=== PATIENT | male | born 2000 | race Caucasian/White ===

== ENCOUNTER 2021-12-10 01:12 | Observation (INO) | payer SELFPAY ==
[~2021-12-10] VITALS: Ht 175.3 cm; Wt 123.7 kg
[2021-12-10] MEDS ORDERED: NS 1,000 ML IV ONE ×3 (01:20→06:15)
[2021-12-10] MEDS ORDERED: LORazepam 2 MG/ML VIAL IV STA ×4 (01:20→10:02)
[2021-12-10] MEDS ORDERED: LORazepam 2 MG/ML VIAL As Ordered ONE ×2 (01:21→03:17)
[2021-12-10] MEDS ORDERED: SUBO8MIS SL (01:43)
[2021-12-10 01:45] LABS: BASO # 0.1 10^3/uL (0.0-0.2); BASO % 0.3 % (0.0-1.0); EOS # 0.2 10^3/uL (0.0-0.5); EOS % 0.8 % (0.0-3.0); HEMATOCRIT 40.8 % (42.0-52.0); HEMOGLOBIN 13.7 g/dl (13.5-17.5); LYMPH % 22.3 % (24.0-44.0); MEAN CORPUSCULAR HEMOGLOBIN 30.4 pg (27.0-33.0); MEAN CORPUSCULAR HGB CONC 33.6 g/dl (32.0-36.5); MEAN CORPUSCULAR VOLUME 90.7 fl (80.0-96.0); MONO # 0.9 10^3/uL (0.0-0.8); MONO % 5.1 % (2.0-8.0); NEUTROPHILS # 12.7 10^3/uL (1.5-8.5); NEUTROPHILS % 71.1 % (36.0-66.0); PLATELET COUNT, AUTOMATED 310 10^3/uL (150-450); WHITE BLOOD COUNT 17.9 10^3/uL (4.0-10.0)
[2021-12-10 02:19] LABS: AMPHETAMINES LEVEL URINE NEGATIVE (NEGATIVE); BARBITURATES URINE NEGATIVE (NEGATIVE); BENZODIAZEPINES URINE NEGATIVE (NEGATIVE); CANNABINOIDS URINE POSITIVE (NEGATIVE); COCAINE METABOLITE URINE NEGATIVE (NEGATIVE); METHADONE URINE NEGATIVE (NEGATIVE); OPIATES URINE POSITIVE (NEGATIVE); PHENCYCLIDINE URINE NEGATIVE (NEGATIVE)
[2021-12-10 02:23] LABS: ACETAMINOPHEN LEVEL < 2.0 UG/ML (10.0-30.0); ALBUMIN 3.9 GM/DL (3.2-5.2); ALT/SGPT 62 U/L (12-78); BILIRUBIN,DIRECT 0.1 MG/DL (0.0-0.2); BILIRUBIN,TOTAL 0.1 MG/DL (0.2-1.0); BLOOD UREA NITROGEN 14 MG/DL (7-18); CALCIUM LEVEL 9.1 MG/DL (8.5-10.1); CARBON DIOXIDE LEVEL 25 MEQ/L (21-32); CHLORIDE LEVEL 104 MEQ/L (98-107); CREATININE FOR GFR 1.22 MG/DL (0.70-1.30); ETHYL ALCOHOL (ETHANOL) < 0.003 % (0.000-0.010); GLOMERULAR FILTRATION RATE > 60.0 (>60); GLUCOSE, FASTING 159 MG/DL (70-100); POTASSIUM SERUM 4.4 MEQ/L (3.5-5.1); SALICYLATE LEVEL 3.6 MG/DL (5.0-30.0); SODIUM LEVEL 139 MEQ/L (136-145); THYROID STIMULATING HORMONE 0.429 uIU/ML (0.358-3.740); TOTAL PROTEIN 7.2 GM/DL (6.4-8.2)
[2021-12-10] MEDS ORDERED: BUPR1SUB5 PO (08:43)
[2021-12-10] MEDS ORDERED: HOME MED LIST COMPLETE! XX SCH (08:45)
[2021-12-10] MEDS ORDERED: NS 1,000 ML IV SCH (09:40)
[2021-12-10 09:57] LABS: BLOOD UREA NITROGEN 14 MG/DL (7-18); CALCIUM LEVEL 8.8 MG/DL (8.5-10.1); CARBON DIOXIDE LEVEL 27 MEQ/L (21-32); CHLORIDE LEVEL 107 MEQ/L (98-107); CREATININE FOR GFR 0.92 MG/DL (0.70-1.30); GLOMERULAR FILTRATION RATE > 60.0 (>60); GLUCOSE, FASTING 98 MG/DL (70-100); SODIUM LEVEL 140 MEQ/L (136-145)
[2021-12-10] MEDS ORDERED: LORazepam 2 MG TAB PO STA ×2 (10:02→10:57)
[2021-12-10] MEDS ORDERED: OLANZapine ORAL DISINTEGRATING TAB 5MG PO ONE (10:10)
[2021-12-10] MEDS ORDERED: LORazepam 2 MG/ML VIAL IM ONE (11:00)
[2021-12-10] MEDS ORDERED: diphenhydrAMINE 50MG/ML VIAL (J1200) IM ONE (11:00)
[2021-12-10] MEDS ORDERED: HALOPERIDOL 5MG/ML VIAL (J1630 PER 1) IM ONE (11:00)
[2021-12-10] MEDS: NS 1,000 ML IV SCH ×3 (12:46→20:10)
[2021-12-10 16:05] LABS: HEMATOCRIT 40.9 % (42.0-52.0); HEMOGLOBIN 13.7 g/dl (13.5-17.5); MEAN CORPUSCULAR HEMOGLOBIN 30.6 pg (27.0-33.0); MEAN CORPUSCULAR HGB CONC 33.5 g/dl (32.0-36.5); MEAN CORPUSCULAR VOLUME 91.5 fl (80.0-96.0); PLATELET COUNT, AUTOMATED 257 10^3/uL (150-450); RED BLOOD COUNT 4.47 10^6/uL (4.30-6.10); WHITE BLOOD COUNT 14.2 10^3/uL (4.0-10.0)
[2021-12-10] MEDS: BUPRENORPHINE/NALOXONE 8-2MG SUBLINGUAL TABLET(SUBOXONE) PO SCH ×2 (16:22→20:10)
[2021-12-10 16:30] LABS: BLOOD UREA NITROGEN 9 MG/DL (7-18); CALCIUM LEVEL 8.9 MG/DL (8.5-10.1); CARBON DIOXIDE LEVEL 26 MEQ/L (21-32); CHLORIDE LEVEL 106 MEQ/L (98-107); CREATININE FOR GFR 0.79 MG/DL (0.70-1.30); GLOMERULAR FILTRATION RATE > 60.0 (>60); GLUCOSE, FASTING 93 MG/DL (70-100); POTASSIUM SERUM 4.5 MEQ/L (3.5-5.1); SODIUM LEVEL 139 MEQ/L (136-145)
[2021-12-10 17:00] LABS: RSV AMPLIFICATION NEGATIVE (NEGATIVE)
[2021-12-10 17:50] VITALS: BP 141/94
[2021-12-10 20:00] VITALS: BP 145/93
[2021-12-10] MEDS ORDERED: RAMELTEON 8 MG TAB (ROZEREM) PO PRN (20:20)
[2021-12-10] MEDS ORDERED: diphenhydrAMINE 50MG/ML VIAL (J1200) IV ONE (20:20)
[2021-12-10] MEDS: ACETAMINOPHEN TAB 650MG DOSE (2X325MG) PO PRN (20:34)
[2021-12-10 22:07] LABS: BLOOD UREA NITROGEN 10 MG/DL (7-18); CALCIUM LEVEL 8.6 MG/DL (8.5-10.1); CARBON DIOXIDE LEVEL 27 MEQ/L (21-32); CHLORIDE LEVEL 107 MEQ/L (98-107); CREATININE FOR GFR 0.88 MG/DL (0.70-1.30); GLOMERULAR FILTRATION RATE > 60.0 (>60); GLUCOSE, FASTING 109 MG/DL (70-100); POTASSIUM SERUM 3.9 MEQ/L (3.5-5.1); SODIUM LEVEL 142 MEQ/L (136-145)
[2021-12-11] MEDS: NS 1,000 ML IV SCH ×3 (01:16→06:04)
[2021-12-11 06:00] VITALS: BP 114/82
[2021-12-11] MEDS: ACETAMINOPHEN TAB 650MG DOSE (2X325MG) PO PRN (06:04)
[2021-12-11 06:46] LABS: HEMATOCRIT 39.2 % (42.0-52.0); HEMOGLOBIN 13.1 g/dl (13.5-17.5); MEAN CORPUSCULAR HEMOGLOBIN 30.8 pg (27.0-33.0); MEAN CORPUSCULAR HGB CONC 33.4 g/dl (32.0-36.5); MEAN CORPUSCULAR VOLUME 92.2 fl (80.0-96.0); PLATELET COUNT, AUTOMATED 231 10^3/uL (150-450); RED BLOOD COUNT 4.25 10^6/uL (4.30-6.10); WHITE BLOOD COUNT 8.4 10^3/uL (4.0-10.0)
[2021-12-11 06:52] LABS: BLOOD UREA NITROGEN 7 MG/DL (7-18); CALCIUM LEVEL 8.5 MG/DL (8.5-10.1); CARBON DIOXIDE LEVEL 26 MEQ/L (21-32); CHLORIDE LEVEL 110 MEQ/L (98-107); GLOMERULAR FILTRATION RATE > 60.0 (>60); GLUCOSE, FASTING 128 MG/DL (70-100); POTASSIUM SERUM 3.8 MEQ/L (3.5-5.1); SODIUM LEVEL 142 MEQ/L (136-145)
[2021-12-11] MEDS: BUPRENORPHINE/NALOXONE 8-2MG SUBLINGUAL TABLET(SUBOXONE) PO SCH (08:02)
== END 2021-12-11 10:25 | disposition home or self-care (01) ==
LOC: M ED 01:12 → M ED INP 01:13 → ENRESERV 16:42 → M MS5PR 17:35
PROVIDERS: ADMIT Family Medicine; ATTEND Family Medicine
DX: F32.9 Major depressive disorder, single episode, unspecified (principal); F41.9 Anxiety disorder, unspecified; F19.120 Other psychoactive substance abuse with intoxication, uncomplicated; R45.851 Suicidal ideations; R45.850 Homicidal ideations; M62.82 Rhabdomyolysis; D72.829 Elevated white blood cell count, unspecified; R79.89 Other specified abnormal findings of blood chemistry; S70.11XA Contusion of right thigh, initial encounter; S00.83XA Contusion of other part of head, initial encounter; Y35.813A Legal intervention involving manhandling, suspect injured, initial encounter; Y92.89 Other specified places as the place of occurrence of the external cause; F17.200 Nicotine dependence, unspecified, uncomplicated
CPT/HCPCS: 36415; 70450; 70486; 71045; 80048; 80076; 80143; 80307; 81002; 82077; 82550; 84443; 85025; 85027; 87631; 93005; 93041; 94760; 96361; 96374; 96375; 96376; 99285; J1200; J2060

== ENCOUNTER 2022-10-11 14:52 | Emergency (ER) | payer OTHER ==
[~2022-10-11 14:52] MED LIST: BUPR1SUB5 SL; SUBO8MIS SL
[2022-10-11 16:26] LABS: HEMATOCRIT 41.7 % (42.0-52.0); HEMOGLOBIN 13.9 g/dl (13.5-17.5); MEAN CORPUSCULAR HGB CONC 33.3 g/dl (32.0-36.5); MEAN CORPUSCULAR VOLUME 93.1 fl (80.0-96.0); PLATELET COUNT, AUTOMATED 312 10^3/uL (150-450); RED BLOOD COUNT 4.48 10^6/uL (4.30-6.10); WHITE BLOOD COUNT 12.6 10^3/uL (4.0-10.0)
[2022-10-11 17:01] LABS: CHLORIDE LEVEL 104 MMOL/L (98-107); SODIUM LEVEL 141 MMOL/L (136-145)
[2022-10-11 17:02] LABS: ALBUMIN 3.9 G/DL (3.2-5.2); CARBON DIOXIDE LEVEL 26 MMOL/L (20-31)
[2022-10-11 17:04] LABS: RSV AMPLIFICATION NEGATIVE (NEGATIVE)
[2022-10-11 17:06] LABS: BLOOD UREA NITROGEN 13 MG/DL (9-23)
[2022-10-11 17:07] LABS: ALKALINE PHOSPHATASE 105 U/L (46-116); CALCIUM LEVEL 9.4 MG/DL (8.5-10.1); ETHYL ALCOHOL (ETHANOL) 0.003 % (0.000-0.010); GLUCOSE, FASTING 87 MG/DL (60-100)
[2022-10-11 17:08] LABS: BILIRUBIN,TOTAL 0.4 MG/DL (0.3-1.2); SALICYLATE LEVEL < 3.0 MG/DL (<30)
[2022-10-11 17:09] LABS: ACETAMINOPHEN LEVEL < 2.0 UG/ML (10.0-20.0); ALT/SGPT 21 U/L (7.0-40); AST/SGOT 22 U/L (<34); BILIRUBIN,DIRECT 0.1 MG/DL (<0.4); CREATININE FOR GFR 0.62 MG/DL (0.70-1.30); GLOMERULAR FILTRATION RATE > 60.0 (>60); TOTAL PROTEIN 6.9 G/DL (5.7-8.2)
[2022-10-11 17:10] LABS: THYROID STIMULATING HORMONE 0.065 uIU/ML (0.55-4.78)
[2022-10-11 17:12] LABS: POTASSIUM SERUM 4.1 MMOL/L (3.5-5.1)
[2022-10-11 18:38] LABS: BARBITURATES URINE NEGATIVE (NEGATIVE); BENZODIAZEPINES URINE NEGATIVE (NEGATIVE)
[2022-10-11 18:39] LABS: METHADONE URINE NEGATIVE (NEGATIVE); OPIATES URINE NEGATIVE (NEGATIVE); PHENCYCLIDINE URINE NEGATIVE (NEGATIVE)
[2022-10-11 18:47] LABS: AMPHETAMINES LEVEL URINE POSITIVE (NEGATIVE); CANNABINOIDS URINE POSITIVE (NEGATIVE); COCAINE METABOLITE URINE POSITIVE (NEGATIVE)
[2022-10-12] MEDS ORDERED: TRAZ1TAB14 PO (07:20)
[2022-10-12] MEDS ORDERED: DOCU100C16 PO (07:20)
[2022-10-12] MEDS ORDERED: HOME MED LIST COMPLETE! XX SCH (07:25)
[2022-10-12 10:58] VITALS: BP 119/63
== END 2022-10-12 11:48 | disposition home or self-care (01) ==
LOC: M ED 14:52
DX: F12.10 Cannabis abuse, uncomplicated (principal); F11.10 Opioid abuse, uncomplicated; F15.10 Other stimulant abuse, uncomplicated; Z79.899 Other long term (current) drug therapy

== ENCOUNTER 2023-11-10 08:01 | Emergency (ER) | payer OTHER ==
[~2023-11-10 08:01] MED LIST changes: +DOCU100C16 PO; +TRAZ1TAB14 PO
[2023-11-10] MEDS ORDERED: FLUO20CA22 (08:10)
[2023-11-10] MEDS ORDERED: HYDR50TA70 (08:10)
[2023-11-10] MEDS ORDERED: PRAZ2CAP (08:10)
[2023-11-10] MEDS ORDERED: MIRT-11 (08:10)
[2023-11-10 08:37] LABS: BASO % 0.4 % (0.0-1.0); EOS % 0.3 % (0.0-3.0); HEMATOCRIT 40.3 % (42.0-52.0); HEMOGLOBIN 13.5 g/dl (13.5-17.5); LYMPH # 1.9 10^3/uL (1.5-5.0); LYMPH % 19.1 % (24.0-44.0); MEAN CORPUSCULAR HEMOGLOBIN 30.5 pg (27.0-33.0); MEAN CORPUSCULAR HGB CONC 33.5 g/dl (32.0-36.5); MEAN CORPUSCULAR VOLUME 91.2 fl (80.0-96.0); MONO # 0.6 10^3/uL (0.0-0.8); NEUTROPHILS # 7.2 10^3/uL (1.5-8.5); NEUTROPHILS % 73.9 % (36.0-66.0); PLATELET COUNT, AUTOMATED 364 10^3/uL (150-450); RED BLOOD COUNT 4.42 10^6/uL (4.30-6.10); WHITE BLOOD COUNT 9.8 10^3/uL (4.0-10.0)
[2023-11-10] MEDS ORDERED: LORazepam 2 MG TAB PO STA (08:43)
[2023-11-10 09:07] LABS: ETHYL ALCOHOL (ETHANOL) < 0.003 % (0.000-0.010)
[2023-11-10 09:08] LABS: CPK CREATINE PHOSPHOKINASE 922 U/L (46-171)
[2023-11-10 09:09] LABS: SALICYLATE LEVEL < 3.0 MG/DL (<30)
[2023-11-10 09:35] LABS: ALBUMIN 4.3 G/DL (3.2-5.2); ALKALINE PHOSPHATASE 128 U/L (46-116); ALT/SGPT 29 U/L (7.0-40); AST/SGOT 28 U/L (<34); BILIRUBIN,DIRECT 0.2 MG/DL (<0.4); BILIRUBIN,TOTAL 0.3 MG/DL (0.3-1.2); BLOOD UREA NITROGEN 13 MG/DL (9-23); CALCIUM LEVEL 9.3 MG/DL (8.5-10.1); CARBON DIOXIDE LEVEL 24 MMOL/L (20-31); CHLORIDE LEVEL 105 MMOL/L (98-107); CREATININE FOR GFR 0.76 MG/DL (0.70-1.30); GLOMERULAR FILTRATION RATE > 60.0 (>60); GLUCOSE, FASTING 128 MG/DL (60-100); POTASSIUM SERUM 3.8 MMOL/L (3.5-5.1); SODIUM LEVEL 139 MMOL/L (136-145); THYROID STIMULATING HORMONE 0.689 uIU/ML (0.55-4.78); TOTAL PROTEIN 7.6 G/DL (5.7-8.2)
[2023-11-10 10:37] LABS: AMPHETAMINES LEVEL URINE NEGATIVE (NEGATIVE); BARBITURATES URINE NEGATIVE (NEGATIVE); BENZODIAZEPINES URINE NEGATIVE (NEGATIVE); METHADONE URINE NEGATIVE (NEGATIVE); OPIATES URINE NEGATIVE (NEGATIVE); PHENCYCLIDINE URINE NEGATIVE (NEGATIVE)
[2023-11-10 10:42] LABS: CANNABINOIDS URINE POSITIVE (NEGATIVE); COCAINE METABOLITE URINE POSITIVE (NEGATIVE)
[2023-11-10 11:26] VITALS: TEMP 97.2
[2023-11-10] MEDS ORDERED: LORazepam 2 MG/ML 1ML VIAL IV STA (12:23)
[2023-11-10] MEDS ORDERED: NS 1,000 ML IV ONE ×2 (12:25)
[2023-11-10] MEDS ORDERED: OLANZapine ORAL DISINTEGRATING TAB 5MG PO ONE (14:25)
[2023-11-10 14:31] VITALS: BP 122/72
[2023-11-10 15:31] VITALS: O2SAT 95
== END 2023-11-10 17:20 | disposition left against medical advice (07) ==
LOC: M ED 08:01
DX: F19.10 Other psychoactive substance abuse, uncomplicated (principal); Z79.899 Other long term (current) drug therapy
CPT/HCPCS: 80048; 80076; 80143; 80307; 82077; 82550; 84443; 85025; 93005; 96374; 99285; J2060